=== PATIENT | male | born 1960 | race Caucasian/White ===

== ENCOUNTER 2018-06-30 16:43 | Emergency (ER) | payer OTHER ==
[~2018-06-30] VITALS: Ht 175.3 cm; Wt 102.1 kg
[~2018-06-30 16:43] MED LIST: ANTIVERT12.5 MG PO; CRESTOR10 MG PO; MAXZIDE-25 MG1 EACH PO; NORVASC10 MG PO; POTASSIUM20 PO
[2018-06-30] MEDS ORDERED: HIGH BLOOD PRESSURE (16:54)
[2018-06-30] MEDS ORDERED: CHOLESTROL (16:55)
[2018-06-30] MEDS ORDERED: DIURETIC (16:55)
[2018-06-30 17:42] LABS: ABSOLUTE BASOPHILS 0.1 thou/uL (0.0-0.2); ABSOLUTE EOSINOPHILS 0.3 thou/uL (0.0-0.7); ABSOLUTE LYMPHOCYTES 1.9 thou/uL (0.8-5.3); ABSOLUTE MONOCYTES 0.4 thou/uL (0.0-1.2); ABSOLUTE NEUTROPHILS 3.2 thou/uL (1.6-8.1); BASOPHILS 1.1 %; EOSINOPHILS 5.7 %; HEMATOCRIT 42.6 % (42.0-52.0); HEMOGLOBIN 14.7 gm/dL (14.0-18.0); MCH 29.8 pg (26.0-34.0); MCHC 34.6 g/dL (28.0-37.0); MCV 86.4 fL (80.0-100.0); MONOCYTES 7.5 %; MPV 8.2 fl. (7.2-11.1); NUCLEATED RBCS 0 /100WBC; PLATELET COUNT* 218 thou/uL (150-400); POLYS 53.7 %; RBC 4.93 mil/uL (4.50-6.00)
[2018-06-30 17:52] LABS: PROTIME 10.4 Seconds (9.20-11.50)
[2018-06-30 17:59] LABS: ALBUMIN 3.9 g/dL (3.4-5.0); ALKALINE PHOSPHATASE 57 U/L (46-116); ANION GAP 9 mmol/L (7-16); BUN 15 mg/dL (7-18); CALCIUM 9.4 mg/dL (8.5-10.1); CHLORIDE 99 mmol/L (98-107); CO2 30 mmol/L (21-32); CREATININE 1.3 mg/dL (0.6-1.3); GLUCOSE 129 mg/dL (70-99); SGOT 29 U/L (15-37); SGPT 53 U/L (30-65); SODIUM 138 mmol/L (136-145); TOTAL BILIRUBIN 0.8 mg/dL (<0.1-1.0); TOTAL PROTEIN 7.2 g/dL (6.4-8.2); TROPONIN-I LEVEL <0.06 ng/mL (<0.06)
[2018-06-30 18:06] LABS: POTASSIUM 2.8 mmol/L (3.5-5.1)
[2018-06-30] MEDS ORDERED: K-DUR 20 MEQ T20 MEQ PO (19:33)
[2018-06-30 19:44] VITALS: BP 135/90
--- NOTE | 2018-07-01 17:00 | EKG ---
[place] [address] ELECTROCARDIOGRAM REPORT Name: BRIJESH MCGOVERN Room: [facility]#: [id number] Admission: 06/30/18 Attend Phys: Discharge: 06/30/18 Date of : 58 Report #: [id number] THIS REPORT FOR: //name// [facility] ED Test Date: 2018-06-30 Test Time: 16:48:57 Pat Name: BRIJESH MCGOVERN Department: Room: Gender: M [place] [employer]: ROS : 1960 Requested By: Audra Leo Order Number: [id number] MD: Tom Junior Measurements Intervals [place] Rate: 78 P: 38 IA: 166 QRS: 62 QRSD: 116 T: -14 QT: 408 QTc: 465 Interpretive Statements Sinus rhythm Possible left atrial enlargement Borderline repolarization abnormality Compared to ECG 08/01/2013 14:22:05 No significant changes Electronically Signed On 07-01-2018 17:00:06 CDT by Tom Junior [email or web address] <ELECTRONICALLY SIGNED> By: Tom Junior MD, [facility] 07/01/18 1700 1648 47 Tom Junior MD, FACC /EPI
== END 2018-06-30 19:45 | disposition home or self-care (01) ==
LOC: M.ERS 16:43
PROVIDERS: Nurse Practitioner Family
DX: E87.6 Hypokalemia (principal); M54.6 Pain in thoracic spine; R07.89 Other chest pain; I10 Essential (primary) hypertension; E78.00 Pure hypercholesterolemia, unspecified